=== PATIENT | male | born 1930 | race Caucasian/White ===

== ENCOUNTER 2017-06-19 22:36 | Emergency (ER) | payer OTHER ==
[~2017-06-19] VITALS: Ht 170.2 cm; Wt 80.5 kg
[2017-06-19 22:41] VITALS: BP 131/51
--- NOTE | 2017-06-19 22:48 | NUR ---
PT TAKEN TO CHAIR B
--- NOTE | 2017-06-19 22:52 | NUR ---
87 Y/O M BIB FAMILY W/C/O NECK/BACK OF HEAD PAIN S/P FALL X NOON TODAY. MED HX HTN, HYPERLIPEDEMIA, PACE MAKER, VERTIGO, AORTIC ANEURISM, BLADDER CANCER. NO LOC PER PT. PT STATES HE GOT UP IMMEDIATELY AFTER FALL. NO SWELLING NOTED TO POSTERIOR OF HEAD, PT STATES SLIGHT TENDERNESS UPON ASSESSMENT.
--- NOTE | 2017-06-19 23:30 | NUR ---
PT LEFT FOR CT
--- NOTE | 2017-06-19 23:42 | NUR ---
PT RETURN FROM CT
[2017-06-20 00:47] VITALS: BP 122/69
--- NOTE | 2017-06-20 00:47 | NUR ---
Patient discharged with v/s stable. Written and verbal after care instructions given and explained. Patient alert, oriented and verbalized understanding of instructions. Ambulatory with steady gait. All questions addressed prior to discharge. ID band removed. Patient advised to follow up with PMD. Rx of NORCO 5/325MG given. Patient educated on indication of medication including possible reaction and side effects. Opportunity to ask questions provided and answered.
== END 2017-06-20 00:47 | disposition home or self-care (01) ==
LOC: MED 22:36
DX: S16.1XXA Strain of muscle, fascia and tendon at neck level, initial encounter (principal); S09.90XA Unspecified injury of head, initial encounter; E78.5 Hyperlipidemia, unspecified; Z85.51 Personal history of malignant neoplasm of bladder; I10 Essential (primary) hypertension; W01.10XA Fall on same level from slipping, tripping and stumbling with subsequent striking against unspecified object, initial encounter; Y93.89 Activity, other specified; Y92.89 Other specified places as the place of occurrence of the external cause; Y99.8 Other external cause status
CPT/HCPCS: 70450; 72125; 99284